=== PATIENT | female | born 1980 | race Caucasian/White ===

== ENCOUNTER 2020-07-01 10:20 | Outpatient (REF) | payer BC, SELFPAY | END 2020-07-01 10:21 | disposition home or self-care (01) | LOC: HO.LAB 10:20 | PROVIDERS: Visit Provider Internal Medicine | DX: Z20.822 Contact with and (suspected) exposure to COVID-19 (principal) | CPT/HCPCS: 36415; C9803; U0003; U0005 ==

== ENCOUNTER 2020-07-15 07:40 | Outpatient (REF) | payer BC, SELFPAY | END 2020-07-15 07:41 | disposition home or self-care (01) | LOC: HO.LAB 07:40 | PROVIDERS: Visit Provider Internal Medicine | DX: Z20.822 Contact with and (suspected) exposure to COVID-19 (principal) | CPT/HCPCS: 36415; C9803; U0003; U0005 ==